=== PATIENT | female | born 1995 | race Caucasian/White ===

== ENCOUNTER 2016-07-12 21:55 | Emergency (ER) | payer OTHER ==
[2016-07-12] MEDS ORDERED: ONDANSETRON 4 MG ORAL DISINTEGRATING TAB (S0181) As Ordered ONE (23:10)
[2016-07-12] MEDS ORDERED: PROMETHAZINE INJ 25 MG/ML VIAL (J2550) As Ordered ONE (23:46)
--- NOTE | 2016-07-13 00:22 | EDDOCDS ---
Physician Documentation [facility] Name: Sherin Zarate Age: 20 yrs Sex: Female : 1995 Arrival Date: 07/12/2016 Time: 21:55 Bed 14 Private MD: Liliana Tay Disposition: 07/13 00:05 Critical Care: Critical care not applicable. le Disposition: 07/13/16 00:00 Discharged to Home/Self Care. Impression: Nausea with vomiting, unspecified, Diarrhea, unspecified. - Condition is Stable. - Discharge Instructions: Food Choices to Help Relieve Diarrhea, Adult, Diarrhea, Food Poisoning, Nausea and Vomiting. - Prescriptions for ZOFRAN ODT 4 mg - dissolve 1 tablet by ORAL route 4 times per day As needed do not chew, do not swallow whole; 10 tablet. - Medication Reconciliation, Local Pharmacy Hours form. - Follow up: Liliana Tay; When: 2 - 3 days; Reason: Recheck today's complaints, Continuance of care. - Problem is new. - Symptoms have improved. - Notes: Use the zofran, as needed, for nausea Keep hydrated by sipping on fluids frequently throughout the day You diarrhea may actually be due to the Augmentin, you can try a Probiotic to counter act this common side effect Return to the ED for any further concerns Historical: - Allergies: no known allergies; - Home Meds: 1. Protonix 40 mg Oral TbEC 1 tab once daily 2. Augmentin 875-125 mg Oral tab every 12 hours - PMHx: Anxiety; Depression; GERD; Left knee pain; Migraine Headaches; - PSHx: ovarian cyst removed; - Social history: Smoking status: Patient states former smoker of tobacco. No barriers to communication noted, The patient speaks fluent Grenadian. - Family history: Not pertinent. - : The pt / caregiver states he / she is not on anticoagulants. Home medication list is obtained from the patient. - Exposure Risk Screening:: None identified. 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 4 in. (162.56 cm) (R); Pain 5/10; 07/13 00:20 BP 132 / 68; Pulse 70; Resp 18; Temp 97.8(O); Pulse Ox 99% on R/A; Pain 0/10; tm5 07/12 21:57 Body Mass Index 51.84 (136.98 kg, 162.56 cm) gr2 MDM: 07/12 23:07 Ondansetron ODT Oral Disintegrating Tablet 4 mg PO once ordered. le 23:07 Fluid Challenge ordered. le 23:41 Promethazine 25 mg IM once ordered. le 23:50 Financial registration complete. hs2 Administered Medications: 23:14 Drug: Ondansetron ODT 4 mg [ondansetron 4 mg disintegrating tablet (1 tabs)] Route: PO; tm5 23:49 Follow up: Response: Nausea is decreased; No Adverse Reaction tm5 23:49 Drug: Promethazine 25 mg [promethazine 25 mg/mL injection solution (1 mL)] Route: IM; tm5 Site: left deltoid; 07/13 00:21 Follow up: Response: Nausea is resolved; No Adverse Reaction tm5 Signatures: Estefanía Walton, SUPERVISOR OF RESEARCH SUPERVISOR OF RESEARCHPalak Salmeron RN RN rs3 Fiorella Lares, Reg Reg hs2 Yvonne Leon RN RN tm5 MTDD
--- NOTE | 2016-07-13 00:22 | EDDOCDS ---
Nurse's Notes [facility] Name: Sherin Zarate Age: 20 yrs Sex: Female : 1995 Arrival Date: 07/12/2016 Time: 21:55 Bed 14 Private MD: Liliana Tay Diagnosis: Nausea with vomiting, unspecified;Diarrhea, unspecified Presentation: 07/12 22:01 Presenting complaint: Patient states: vomiting/diarrhea after eating Armenian food rs3 tonight. Adult Sepsis Screening: The patient does not have new or worsening altered mentation. Patient's respiratory rate is less than 22. Systolic blood pressure is greater than 100. Patient has a qSOFA score of 0- Negative Sepsis Screen. Suicide/Homicide risk assessment- the patient denies having any suicidal and/or homicidal ideations and does not present with any other emotional, behavioral or mental health complaints. Status: Patient is not a ramp service man or dependent. Transition of care: patient was not received from another setting of care. 22:01 Acuity: SARAHI Level 4 rs3 22:01 Method Of Arrival: Walkin/Carried/Asstd rs3 Triage Assessment: 22:03 General: Appears in no apparent distress. Pain: Location: abdomen. Pt Declines HIV rs3 testing. 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 Protonix 40 mg Oral TbEC 1 tab once daily 2. Augmentin 875-125 mg Oral tab every 12 hours - PMHx: Anxiety; Depression; GERD; Left knee pain; Migraine Headaches; - PSHx: ovarian cyst removed; - Social history: Smoking status: Patient states former smoker of tobacco. No barriers to communication noted, The patient speaks fluent Polish. - Family history: Not pertinent. - : The pt / caregiver states he / she is not on anticoagulants. Home medication list is obtained from the patient. - Exposure Risk Screening:: None identified. Screenin:14 Screening information is obtained from the patient. Fall risk: No risks identified. tm5 Assistance ADL's: requires no assistance with activities of daily living. Abuse/DV Screen: The patient / caregiver reports he/she is: not in a situation that causes fear, pain or injury. Nutritional screening: No deficits noted. Advance Directives: There is no active DNR order. home support is adequate. Assessment: 23:14 General: Appears in no apparent distress, Behavior is appropriate for age, cooperative. tm5 Pain: Denies pain. Neurological: Level of Consciousness is awake, alert, obeys commands, Oriented to person, place, time. Respiratory: No deficits noted. GI: Abdomen is obese, Bowel sounds present X 4 quads. Abd is soft and non tender X 4 quads. Reports nausea, vomiting. : No deficits noted. Derm: Skin is pink, warm & dry. 23:16 General: pt was provided with Ice water per SUPERVISOR BLAST FURNACE's request for PO challenge . tm5 23:51 Reassessment: Patient appears in no apparent distress at this time. Patient states tm5 symptoms have not improved. pt states that her nausea is a little better but she did "burp" and had a little bit of vomit come back up. 07/13 00:20 Reassessment: Patient appears in no apparent distress at this time. Patient states tm5 feeling better. Patient states symptoms have improved. Vital Signs: 07/12 21:57 BP 134 / 75; Pulse 95; Resp 18 S; Temp 99.3(O); Pulse Ox 98% on R/A; Weight 136.98 kg gr2 (R); Height 5 ft. 4 in. (162.56 cm) (R); Pain 5/10; 07/13 00:20 BP 132 / 68; Pulse 70; Resp 18; Temp 97.8(O); Pulse Ox 99% on R/A; Pain 0/10; tm5 07/12 21:57 Body Mass Index 51.84 (136.98 kg, 162.56 cm) gr2 Vitals: 07/12 21:57 Log In Time: July 12, 2016 at 21:57. gr2 ED Course: 21:56 Patient visited by Steve Medina. gr2 21:56 Patient moved to Waiting gr2 21:57 Liliana Tay is Private Physician. gr2 21:58 Patient visited by Steve Medina. gr2 21:58 Patient moved to Pre RCE gr2 22:02 Triage Initiated rs3 23:07 [facility]ef[facility] le 23:07 Patient moved to 14 cz 23:12 Patient visited by Estefanía Walton FNP. le 23:14 ED physician to see patient. tm5 23:14 The patient / caregiver is instructed regarding the plan of care and ED course. tm5 23:51 Patient visited by Yvonne Leon RN. tm5 07/13 00:00 Liliana Tay is Referral Physician. le 00:19 Patient visited by Yvonne Leon RN. tm5 00:20 No IV's were initiated during this patient's visit. No procedures done that require tm5 assistance. Administered Medications: 07/12 23:14 Drug: Ondansetron ODT 4 mg [ondansetron 4 mg disintegrating tablet (1 tabs)] Route: PO; tm5 23:49 Follow up: Response: Nausea is decreased; No Adverse Reaction tm5 23:49 Drug: Promethazine 25 mg [promethazine 25 mg/mL injection solution (1 mL)] Route: IM; tm5 Site: left deltoid; 07/13 00:21 Follow up: Response: Nausea is resolved; No Adverse Reaction tm5 Order Results: There are currently no results for this order. Outcome: 00:00 Discharge ordered by Provider. le 00:20 Discharge Assessment: Patient awake, alert and oriented x 3. No cognitive and/or tm5 functional deficits noted. Patient verbalized understanding of disposition instructions. patient administered narcotics - no. The following High Risk Discharge criteria are identified: None. Discharged to home ambulatory, with significant other. Condition: good Condition: stable Condition: improved. Discharge instructions given to patient, Instructed on discharge instructions, follow up and referral plans. medication usage, Demonstrated understanding of instructions, medications, Pt was receptive of discharge instructions/ teaching. Prescriptions given X 1. No special radiology studies were completed. Property :Personal belongings accompany Pt. 00:21 Patient left the ED. tm5 Signatures: Madahv Smith RN RN Estefanía De La Cruz FNP FNP le Soosairaj, Rosemary, RN RN rs3 Steve Medina 2 Yvonne Leon,RN WOLF tm5 MTDD
--- NOTE | 2016-07-15 01:22 | EDDOCDS ---
Nurse's Notes [facility] Name: Sherin Zarate Age: 20 yrs Sex: Female : 1995 Arrival Date: 07/12/2016 Time: 21:55 Bed 14 Private MD: Liliana Tay Diagnosis: Nausea with vomiting, unspecified;Diarrhea, unspecified Presentation: 07/12 22:01 Presenting complaint: Patient states: vomiting/diarrhea after eating Korean food rs3 tonight. Adult Sepsis Screening: The patient does not have new or worsening altered mentation. Patient's respiratory rate is less than 22. Systolic blood pressure is greater than 100. Patient has a qSOFA score of 0- Negative Sepsis Screen. Suicide/Homicide risk assessment- the patient denies having any suicidal and/or homicidal ideations and does not present with any other emotional, behavioral or mental health complaints. Status: Patient is not a return to service inspector or dependent. Transition of care: patient was not received from another setting of care. 22:01 Acuity: SARAHI Level 4 rs3 22:01 Method Of Arrival: Walkin/Carried/Asstd rs3 Triage Assessment: 22:03 General: Appears in no apparent distress. Pain: Location: abdomen. Pt Declines HIV rs3 testing. PUBLIC HEALTH: 22:03 LMP N/A - Irregular menses rs3 Historical: - Allergies: no known allergies; - Home Meds: 1. Protonix 40 mg Oral TbEC 1 tab once daily 2. Augmentin 875-125 mg Oral tab every 12 hours - PMHx: Anxiety; Depression; GERD; Left knee pain; Migraine Headaches; - PSHx: ovarian cyst removed; - Social history: Smoking status: Patient states former smoker of tobacco. No barriers to communication noted, The patient speaks fluent Khmer. - Family history: Not pertinent. - : The pt / caregiver states he / she is not on anticoagulants. Home medication list is obtained from the patient. - Exposure Risk Screening:: None identified. Screenin:14 Screening information is obtained from the patient. Fall risk: No risks identified. tm5 Assistance ADL's: requires no assistance with activities of daily living. Abuse/DV Screen: The patient / caregiver reports he/she is: not in a situation that causes fear, pain or injury. Nutritional screening: No deficits noted. Advance Directives: There is no active DNR order. home support is adequate. Assessment: 23:14 General: Appears in no apparent distress, Behavior is appropriate for age, cooperative. tm5 Pain: Denies pain. Neurological: Level of Consciousness is awake, alert, obeys commands, Oriented to person, place, time. Respiratory: No deficits noted. GI: Abdomen is obese, Bowel sounds present X 4 quads. Abd is soft and non tender X 4 quads. Reports nausea, vomiting. : No deficits noted. Derm: Skin is pink, warm & dry. 23:16 General: pt was provided with Ice water per CEREAL CHEMIST's request for PO challenge . tm5 23:51 Reassessment: Patient appears in no apparent distress at this time. Patient states tm5 symptoms have not improved. pt states that her nausea is a little better but she did "burp" and had a little bit of vomit come back up. 07/13 00:20 Reassessment: Patient appears in no apparent distress at this time. Patient states tm5 feeling better. Patient states symptoms have improved. Vital Signs: 07/12 21:57 BP 134 / 75; Pulse 95; Resp 18 S; Temp 99.3(O); Pulse Ox 98% on R/A; Weight 136.98 kg gr2 (R); Height 5 ft. 4 in. (162.56 cm) (R); Pain 5/10; 07/13 00:20 BP 132 / 68; Pulse 70; Resp 18; Temp 97.8(O); Pulse Ox 99% on R/A; Pain 0/10; tm5 07/12 21:57 Body Mass Index 51.84 (136.98 kg, 162.56 cm) gr2 Vitals: 07/12 21:57 Log In Time: July 12, 2016 at 21:57. gr2 ED Course: 21:56 Patient visited by Steve Medina. gr2 21:56 Patient moved to Waiting gr2 21:57 Liliana Tay is Private Physician. gr2 21:58 Patient visited by Steve Medina. gr2 21:58 Patient moved to Pre RCE gr2 22:02 Triage Initiated rs3 23:07 Estef[facility] F[facility] le 23:07 Patient moved to 14 cz 23:12 Patient visited by Estefanía Walton FNP. le 23:14 ED physician to see patient. tm5 23:14 The patient / caregiver is instructed regarding the plan of care and ED course. tm5 23:51 Patient visited by Yvonne Leon RN. tm5 07/13 00:00 Liliana Tay is Referral Physician. le 00:19 Patient visited by Yvonne Leon RN. tm5 00:20 No IV's were initiated during this patient's visit. No procedures done that require tm5 assistance. 00:43 [facility] Payment Agreement was scanned into [employer] and attached to record. hs2 12:18 T-Sheet-- Draft Copy was scanned into [employer] and attached to record. gb Administered Medications: 07/12 23:14 Drug: Ondansetron ODT 4 mg [ondansetron 4 mg disintegrating tablet (1 tabs)] Route: PO; tm5 23:49 Follow up: Response: Nausea is decreased; No Adverse Reaction tm5 23:49 Drug: Promethazine 25 mg [promethazine 25 mg/mL injection solution (1 mL)] Route: IM; tm5 Site: left deltoid; 07/13 00:21 Follow up: Response: Nausea is resolved; No Adverse Reaction tm5 Order Results: There are currently no results for this order. Outcome: 00:00 Discharge ordered by Provider. le 00:20 Discharge Assessment: Patient awake, alert and oriented x 3. No cognitive and/or tm5 functional deficits noted. Patient verbalized understanding of disposition instructions. patient administered narcotics - no. The following High Risk Discharge criteria are identified: None. Discharged to home ambulatory, with significant other. Condition: good Condition: stable Condition: improved. Discharge instructions given to patient, Instructed on discharge instructions, follow up and referral plans. medication usage, Demonstrated understanding of instructions, medications, Pt was receptive of discharge instructions/ teaching. Prescriptions given X 1. No special radiology studies were completed. Property :Personal belongings accompany Pt. 00:21 Patient left the ED. tm5 Signatures: Madhav Smith RN RN cz Barnhardt, Gloria, Reg Reg gb Estefanía Walton FNP FNP le Soosairaj, Rosemary, RN RN rs3 Steve Medina 2 Fiorella Lares, Reg Reg hs2 Matice,Yvonne,RN RN tm5 Chart Complete MTDD
--- NOTE | 2016-07-15 01:22 | EDDOCDS ---
Physician Documentation [facility] Name: Sherin Zarate Age: 20 yrs Sex: Female : 1995 Arrival Date: 07/12/2016 Time: 21:55 Bed 14 Private MD: iLliana Tay Disposition: 07/13 00:05 Critical Care: Critical care not applicable. le Disposition: 07/13/16 00:00 Discharged to Home/Self Care. Impression: Nausea with vomiting, unspecified, Diarrhea, unspecified. - Condition is Stable. - Discharge Instructions: Food Choices to Help Relieve Diarrhea, Adult, Diarrhea, Food Poisoning, Nausea and Vomiting. - Prescriptions for ZOFRAN ODT 4 mg - dissolve 1 tablet by ORAL route 4 times per day As needed do not chew, do not swallow whole; 10 tablet. - Medication Reconciliation, Local Pharmacy Hours form. - Follow up: Liliana Tay; When: 2 - 3 days; Reason: Recheck today's complaints, Continuance of care. - Problem is new. - Symptoms have improved. - Notes: Use the zofran, as needed, for nausea Keep hydrated by sipping on fluids frequently throughout the day You diarrhea may actually be due to the Augmentin, you can try a Probiotic to counter act this common side effect Return to the ED for any further concerns Historical: - Allergies: no known allergies; - Home Meds: 1. Protonix 40 mg Oral TbEC 1 tab once daily 2. Augmentin 875-125 mg Oral tab every 12 hours - PMHx: Anxiety; Depression; GERD; Left knee pain; Migraine Headaches; - PSHx: ovarian cyst removed; - Social history: Smoking status: Patient states former smoker of tobacco. No barriers to communication noted, The patient speaks fluent Malawian. - Family history: Not pertinent. - : The pt / caregiver states he / she is not on anticoagulants. Home medication list is obtained from the patient. - Exposure Risk Screening:: None identified. 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 4 in. (162.56 cm) (R); Pain 5/10; 07/13 00:20 BP 132 / 68; Pulse 70; Resp 18; Temp 97.8(O); Pulse Ox 99% on R/A; Pain 0/10; tm5 07/12 21:57 Body Mass Index 51.84 (136.98 kg, 162.56 cm) gr2 MDM: 07/12 23:07 Ondansetron ODT Oral Disintegrating Tablet 4 mg PO once ordered. le 23:07 Fluid Challenge ordered. le 23:41 Promethazine 25 mg IM once ordered. le 23:50 Financial registration complete. hs2 07/13 00:43 [facility] Payment Agreement was scanned into [employer] and attached to record. hs2 12:18 T-Sheet-- Draft Copy was scanned into [employer] and attached to record. gb Administered Medications: 07/12 23:14 Drug: Ondansetron ODT 4 mg [ondansetron 4 mg disintegrating tablet (1 tabs)] Route: PO; tm5 23:49 Follow up: Response: Nausea is decreased; No Adverse Reaction tm5 23:49 Drug: Promethazine 25 mg [promethazine 25 mg/mL injection solution (1 mL)] Route: IM; tm5 Site: left deltoid; 07/13 00:21 Follow up: Response: Nausea is resolved; No Adverse Reaction tm5 Signatures: Carrie Gardner, Reg Reg gb Estefanía Walton, PSYCHIATRIC RN PSYCHIATRIC RN Palak Guevara RN RN rs3 Fiorella Lares, Reg Reg hs2 Yvonne Leon RN RN tm5 The chart was reviewed and I authenticate all verbal orders and agree with the evaluation and treatment provided.Attachments: 00:43 [facility] [place] Agreement hs2 12:18 T-Sheet-- Draft Copy gb Chart Complete MTDD
--- NOTE | 2016-07-15 01:22 | EDDOCDS ---
Physician Documentation [facility] Name: Sherin Zarate Age: 20 yrs Sex: Female : 1995 Arrival Date: 07/12/2016 Time: 21:55 Bed 14 Private MD: Liliana Tay Disposition: 07/13 00:05 Critical Care: Critical care not applicable. le Disposition: 07/13/16 00:00 Discharged to Home/Self Care. Impression: Nausea with vomiting, unspecified, Diarrhea, unspecified. - Condition is Stable. - Discharge Instructions: Food Choices to Help Relieve Diarrhea, Adult, Diarrhea, Food Poisoning, Nausea and Vomiting. - Prescriptions for ZOFRAN ODT 4 mg - dissolve 1 tablet by ORAL route 4 times per day As needed do not chew, do not swallow whole; 10 tablet. - Medication Reconciliation, Local Pharmacy Hours form. - Follow up: Liliana Tay; When: 2 - 3 days; Reason: Recheck today's complaints, Continuance of care. - Problem is new. - Symptoms have improved. - Notes: Use the zofran, as needed, for nausea Keep hydrated by sipping on fluids frequently throughout the day You diarrhea may actually be due to the Augmentin, you can try a Probiotic to counter act this common side effect Return to the ED for any further concerns Historical: - Allergies: no known allergies; - Home Meds: 1. Protonix 40 mg Oral TbEC 1 tab once daily 2. Augmentin 875-125 mg Oral tab every 12 hours - PMHx: Anxiety; Depression; GERD; Left knee pain; Migraine Headaches; - PSHx: ovarian cyst removed; - Social history: Smoking status: Patient states former smoker of tobacco. No barriers to communication noted, The patient speaks fluent Angolan. - Family history: Not pertinent. - : The pt / caregiver states he / she is not on anticoagulants. Home medication list is obtained from the patient. - Exposure Risk Screening:: None identified. 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 4 in. (162.56 cm) (R); Pain 5/10; 07/13 00:20 BP 132 / 68; Pulse 70; Resp 18; Temp 97.8(O); Pulse Ox 99% on R/A; Pain 0/10; tm5 07/12 21:57 Body Mass Index 51.84 (136.98 kg, 162.56 cm) gr2 MDM: 07/12 23:07 Ondansetron ODT Oral Disintegrating Tablet 4 mg PO once ordered. le 23:07 Fluid Challenge ordered. le 23:41 Promethazine 25 mg IM once ordered. le 23:50 Financial registration complete. hs2 07/13 00:43 [facility] Payment Agreement was scanned into [employer] and attached to record. hs2 12:18 T-Sheet-- Draft Copy was scanned into [employer] and attached to record. gb Administered Medications: 07/12 23:14 Drug: Ondansetron ODT 4 mg [ondansetron 4 mg disintegrating tablet (1 tabs)] Route: PO; tm5 23:49 Follow up: Response: Nausea is decreased; No Adverse Reaction tm5 23:49 Drug: Promethazine 25 mg [promethazine 25 mg/mL injection solution (1 mL)] Route: IM; tm5 Site: left deltoid; 07/13 00:21 Follow up: Response: Nausea is resolved; No Adverse Reaction tm5 Signatures: Carrie Gardner, Reg Reg gb Estefanía Walton, PATIENT OFFICE REP PATIENT OFFICE REP Palak Guevara RN RN rs3 Fiorella Lares, Reg Reg hs2 Yvonne Leon RN RN tm5 The chart was reviewed and I authenticate all verbal orders and agree with the evaluation and treatment provided.Attachments: 00:43 [facility] [place] Payment Agreement hs2 12:18 T-Sheet-- Draft Copy gb Chart Complete MTDD
== END 2016-07-13 00:21 | disposition home or self-care (01) ==
LOC: M ED 21:55
DX: R11.2 Nausea with vomiting, unspecified (principal); R19.7 Diarrhea, unspecified; F41.9 Anxiety disorder, unspecified; F32.9 Major depressive disorder, single episode, unspecified; K21.9 Gastro-esophageal reflux disease without esophagitis; M25.562 Pain in left knee; G43.909 Migraine, unspecified, not intractable, without status migrainosus; Z87.891 Personal history of nicotine dependence; Z79.899 Other long term (current) drug therapy

== ENCOUNTER → 2017-01-02 | Outpatient (CLI) | payer MEDICAID, OTHER ==
[2017-01-02 16:41] LABS: BASO % 0.5 % (0.0-1.0); EOS # 0.2 K/mm3 (0.0-0.50); EOS % 2.7 % (0.0-3.0); LARGE UNSTAINED CELL # 0.1 K/mm3 (0.0-0.4); LARGE UNSTAINED CELL % 1.1 % (0.0-4.0); LYMPH # 1.7 K/mm3 (1.5-6.5); LYMPH % 20.5 % (24.0-44.0); MEAN CORPUSCULAR HEMOGLOBIN 29.7 pg (27.0-33.0); MEAN CORPUSCULAR HGB CONC 33.7 g/dl (32.0-36.5); MEAN CORPUSCULAR VOLUME 88.1 fl (80.0-96.0); MONO # 0.4 K/mm3 (0.0-0.8); MONO % 5.4 % (0.0-5.0); NEUTROPHILS # 5.5 K/mm3 (1.8-7.7); NEUTROPHILS % 69.7 % (36.0-66.0); PLATELET COUNT, AUTOMATED 264 k/mm3 (150-450); RED CELL DISTRIBUTION WIDTH 13.3 % (11.5-14.5); WHITE BLOOD COUNT 7.9 K/mm3 (4.0-10.0)
[2017-01-02 16:56] LABS: ALBUMIN 3.4 GM/DL (3.2-5.2); ALBUMIN/GLOBULIN RATIO 1.06 (1.00-1.93); ALKALINE PHOSPHATASE 59 U/L (45-117); ALT/SGPT 24 U/L (12-78); ANION GAP 6 MEQ/L (8-16); AST/SGOT 11 U/L (15-37); BILIRUBIN,TOTAL 0.6 MG/DL (0.2-1.0); BLOOD UREA NITROGEN 11 MG/DL (7-18); CALCIUM LEVEL 8.8 MG/DL (8.5-10.1); CARBON DIOXIDE LEVEL 25 MEQ/L (21-32); CHLORIDE LEVEL 105 MEQ/L (98-107); CREATININE FOR GFR 0.69 MG/DL (0.55-1.02); GLUCOSE, FASTING 88 MG/DL (70-105); POTASSIUM SERUM 4.3 MEQ/L (3.5-5.1); SODIUM LEVEL 136 MEQ/L (136-145); TOTAL PROTEIN 6.6 GM/DL (6.4-8.2)
[2017-01-06 08:07] LABS: PROTEIN C ANTIGEN 97 % (60-150); PROTEIN S ANTIGEN FREE 101 % (57-157); PROTEIN S ANTIGEN TOTAL 92 % (60-150)
== END ==
LOC: M WUC 13:48
PROVIDERS: ATTEND Surgery
DX: E66.01 Morbid (severe) obesity due to excess calories (principal)

== ENCOUNTER → 2017-03-07 | Outpatient (CLI) | payer OTHER ==
[2017-03-07 14:01] LABS: BASO % 0.4 % (0.0-1.0); EOS # 0.2 K/mm3 (0.0-0.50); EOS % 2.8 % (0.0-3.0); LYMPH # 1.7 K/mm3 (1.5-6.5); LYMPH % 22.9 % (24.0-44.0); MEAN CORPUSCULAR HEMOGLOBIN 30.2 pg (27.0-33.0); MEAN CORPUSCULAR HGB CONC 34.3 g/dl (32.0-36.5); MONO # 0.4 K/mm3 (0.0-0.8); MONO % 4.9 % (0.0-5.0); NEUTROPHILS # 4.9 K/mm3 (1.8-7.7); NEUTROPHILS % 67.4 % (36.0-66.0); RED CELL DISTRIBUTION WIDTH 13.6 % (11.5-14.5); WHITE BLOOD COUNT 7.3 K/mm3 (4.0-10.0)
[2017-03-07 14:23] LABS: ALBUMIN 3.5 GM/DL (3.2-5.2); ALBUMIN/GLOBULIN RATIO 0.97 (1.00-1.93); ALKALINE PHOSPHATASE 64 U/L (45-117); ALT/SGPT 26 U/L (12-78); ANION GAP 6 MEQ/L (8-16); AST/SGOT 13 U/L (15-37); BILIRUBIN,TOTAL 0.6 MG/DL (0.2-1.0); BLOOD UREA NITROGEN 15 MG/DL (7-18); CARBON DIOXIDE LEVEL 28 MEQ/L (21-32); CHLORIDE LEVEL 107 MEQ/L (98-107); CREATININE FOR GFR 0.89 MG/DL (0.55-1.02); GLUCOSE, FASTING 104 MG/DL (70-105); POTASSIUM SERUM 4.2 MEQ/L (3.5-5.1); SODIUM LEVEL 141 MEQ/L (136-145); TOTAL PROTEIN 7.1 GM/DL (6.4-8.2)
== END ==
LOC: M WUC 10:39
PROVIDERS: ATTEND Nurse Practitioner Family
DX: G90.09 Other idiopathic peripheral autonomic neuropathy (principal)

== ENCOUNTER → 2017-05-15 | Outpatient (CLI) | payer OTHER ==
[2017-05-15 09:18] LABS: TOTAL PROTEIN 6.5 GM/DL (6.4-8.2)
[2017-05-15 09:22] LABS: FOLATE 6.9 NG/ML; VITAMIN B12 LEVEL 285 PG/ML
[2017-05-17 11:10] LABS: ALBUMIN % 55.4 % (55.8-66.1); GAMMA GLOBULIN % 17.1 % (11.1-18.8)
== END ==
LOC: M LAB 07:50
PROVIDERS: ATTEND Psychiatry & Neurology Neurology
DX: R20.9 Unspecified disturbances of skin sensation (principal); Z13.29 Encounter for screening for other suspected endocrine disorder

== ENCOUNTER → 2017-06-01 | Outpatient (CLI) | payer OTHER ==
--- NOTE | 2017-06-01 15:58 | REP ---
CHEST, TWO VIEWS: Comparison: 07/24/2015. There is no evidence of acute infiltrate. No pleural effusion is seen. The heart is normal in size. The mediastinal silhouette is unremarkable. The visualized osseous structures are intact. IMPRESSION: No acute pulmonary disease. Signed by Kris Massey MD 06/01/2017 05:02 P
== END ==
LOC: M WUC 13:26
PROVIDERS: ATTEND Physician Assistant
DX: J20.9 Acute bronchitis, unspecified (principal)

== ENCOUNTER → 2017-06-21 | Outpatient (CLI) | payer OTHER ==
[2017-06-21 16:59] LABS: ALBUMIN 3.5 GM/DL (3.2-5.2); ALBUMIN/GLOBULIN RATIO 1.06 (1.00-1.93); ALKALINE PHOSPHATASE 61 U/L (45-117); ALT/SGPT 47 U/L (12-78); ANION GAP 6 MEQ/L (8-16); AST/SGOT 30 U/L (7-37); BILIRUBIN,TOTAL 0.7 MG/DL (0.2-1.0); BLOOD UREA NITROGEN 13 MG/DL (7-18); CALCIUM LEVEL 8.5 MG/DL (8.5-10.1); CARBON DIOXIDE LEVEL 26 MEQ/L (21-32); CHLORIDE LEVEL 110 MEQ/L (98-107); CREATININE FOR GFR 0.75 MG/DL (0.55-1.02); GLUCOSE, FASTING 102 MG/DL (70-105); POTASSIUM SERUM 4.4 MEQ/L (3.5-5.1); SODIUM LEVEL 142 MEQ/L (136-145); TOTAL PROTEIN 6.8 GM/DL (6.4-8.2)
[2017-06-21 17:09] LABS: ESTIMATED AVERAGE GLUCOSE 114 MG/DL (60-110); HEMOGLOBIN A1c 5.6 %
== END ==
LOC: M WUC 12:30
DX: R73.02 Impaired glucose tolerance (oral) (principal)
CPT/HCPCS: 80053

== ENCOUNTER → 2017-06-27 | Outpatient (CLI) | payer OTHER | LOC: M RAD 10:25 | DX: N92.6 Irregular menstruation, unspecified (principal); E65 Localized adiposity | CPT/HCPCS: 76856 ==

== ENCOUNTER 2017-08-21 12:59 | Emergency (ER) | payer OTHER ==
[2017-08-21] MEDS: GI COCKTAIL 50ML BTL(HYOSCYAMINE/MAALOX/LIDOCAINE VISCOUS)(1:3:1) PO (14:45)
[2017-08-21 14:47] LABS: BASO % 0.4 % (0.0-1.0); EOS # 0.2 10^3/uL (0.0-0.50); EOS % 2.4 % (0.0-3.0); HEMATOCRIT 41.8 % (36.0-47.0); HEMOGLOBIN 13.5 g/dl (12.0-16.0); IMMATURE GRANULOCYTE % 0.3 % (0-3.0); LYMPH # 1.9 10^3/uL (1.5-6.5); MEAN CORPUSCULAR HEMOGLOBIN 28.8 pg (27.0-33.0); MEAN CORPUSCULAR HGB CONC 32.3 g/dl (32.0-36.5); MEAN CORPUSCULAR VOLUME 89.3 fl (80.0-96.0); MONO # 0.7 10^3/uL (0.0-0.8); NEUTROPHILS % 63.9 % (36.0-66.0); PLATELET COUNT, AUTOMATED 247 10^3/uL (150-450); RED BLOOD COUNT 4.68 10^6/uL (4.00-5.40); RED CELL DISTRIBUTION WIDTH 13.9 % (11.5-14.5); WHITE BLOOD COUNT 7.8 10^3/uL (4.0-10.0)
[2017-08-21 14:52] LABS: CONTROL LINE HCG INT CTR LINE PRESENT; HCG, SERUM QUALITATIVE NEGATIVE (NEGATIVE)
[2017-08-21 14:57] LABS: INR 0.85; PROTHROMBIN TIME 11.7 SECONDS (12.4-14.5)
[2017-08-21 15:02] LABS: ALBUMIN 3.5 GM/DL (3.2-5.2); ALT/SGPT 25 U/L (12-78); ANION GAP 4 MEQ/L (8-16); AST/SGOT 14 U/L (7-37); BILIRUBIN,DIRECT < 0.1 MG/DL (0.0-0.2); BLOOD UREA NITROGEN 13 MG/DL (7-18); C REACTIVE PROTEIN QUANTITATIV 1.81 MG/DL (0.00-0.30); CALCIUM LEVEL 8.7 MG/DL (8.5-10.1); CARBON DIOXIDE LEVEL 28 MEQ/L (21-32); CHLORIDE LEVEL 109 MEQ/L (98-107); GLUCOSE, FASTING 97 MG/DL (70-100); LIPASE 102 U/L (73-393); POTASSIUM SERUM 4.5 MEQ/L (3.5-5.1); SODIUM LEVEL 141 MEQ/L (136-145); TROPONIN I < 0.02 NG/ML (< 0.10)
[2017-08-21 15:08] LABS: ALKALINE PHOSPHATASE 67 U/L (45-117); BILIRUBIN,TOTAL 0.3 MG/DL (0.2-1.0); CK-MB VALUE MASS 1.5 NG/ML (0.0-3.6); CPK CREATINE PHOSPHOKINASE 164 U/L (26-192); FREE T4 0.98 NG/DL (0.78-1.33); MB/CK RELATIVE INDEX 0.91 (< OR =4); NT-PRO BNP 28 PG/ML (<125)
[2017-08-21 15:10] LABS: D-DIMER QUANT < 270.0 ng/ml (<500)
[2017-08-21 18:13] LABS: CK-MB VALUE MASS 1.2 NG/ML (0.0-3.6); CPK CREATINE PHOSPHOKINASE 150 U/L (26-192); TROPONIN I < 0.02 NG/ML (< 0.10)
== END 2017-08-21 18:57 | disposition home or self-care (01) ==
LOC: M ED 12:59
DX: R07.9 Chest pain, unspecified (principal); J45.909 Unspecified asthma, uncomplicated; K21.9 Gastro-esophageal reflux disease without esophagitis; Z79.84 Long term (current) use of oral hypoglycemic drugs; Z79.899 Other long term (current) drug therapy
CPT/HCPCS: 71046

== ENCOUNTER → 2017-09-07 | Outpatient (CLI) | payer OTHER ==
[2017-09-07 12:58] LABS: BASO % 0.4 % (0.0-1.0); EOS # 0.2 10^3/uL (0.0-0.50); EOS % 2.3 % (0.0-3.0); HEMATOCRIT 41.5 % (36.0-47.0); HEMOGLOBIN 13.4 g/dl (12.0-16.0); IMMATURE GRANULOCYTE % 0.4 % (0-3.0); LYMPH # 1.7 10^3/uL (1.5-6.5); LYMPH % 22.3 % (24.0-44.0); MEAN CORPUSCULAR HEMOGLOBIN 28.5 pg (27.0-33.0); MEAN CORPUSCULAR HGB CONC 32.3 g/dl (32.0-36.5); MEAN CORPUSCULAR VOLUME 88.1 fl (80.0-96.0); MONO # 0.6 10^3/uL (0.0-0.8); MONO % 7.1 % (0.0-5.0); NEUTROPHILS # 5.3 10^3/uL (1.8-7.7); NEUTROPHILS % 67.5 % (36.0-66.0); PLATELET COUNT, AUTOMATED 269 10^3/uL (150-450); RED BLOOD COUNT 4.71 10^6/uL (4.00-5.40); WHITE BLOOD COUNT 7.8 10^3/uL (4.0-10.0)
[2017-09-07 13:14] LABS: ALBUMIN 3.4 GM/DL (3.2-5.2); ALBUMIN/GLOBULIN RATIO 0.97 (1.00-1.93); ALKALINE PHOSPHATASE 69 U/L (45-117); ALT/SGPT 27 U/L (12-78); ANION GAP 7 MEQ/L (8-16); AST/SGOT 11 U/L (7-37); BILIRUBIN,TOTAL 0.2 MG/DL (0.2-1.0); BLOOD UREA NITROGEN 19 MG/DL (7-18); CALCIUM LEVEL 8.6 MG/DL (8.5-10.1); CARBON DIOXIDE LEVEL 26 MEQ/L (21-32); CHLORIDE LEVEL 112 MEQ/L (98-107); CHOLESTEROL LEVEL 165 MG/DL (<200); CPK CREATINE PHOSPHOKINASE 155 U/L (26-192); CREATININE FOR GFR 0.82 MG/DL (0.55-1.30); GLUCOSE, FASTING 107 MG/DL (70-100); POTASSIUM SERUM 4.5 MEQ/L (3.5-5.1); SODIUM LEVEL 145 MEQ/L (136-145); TOTAL PROTEIN 6.9 GM/DL (6.4-8.2); TRIGLYCERIDES LEVEL 98 MG/DL (<150); TROPONIN I < 0.02 NG/ML (< 0.10)
[2017-09-07 13:21] LABS: CHOLESTEROL RISK RATIO 2.894 (<5); HDL CHOLESTEROL 57 MG/DL (>40); LDL CHOLESTEROL 88.4 MG/DL (<100); NON-HDL-C 108 MG/DL; NT-PRO BNP 35 PG/ML (<125)
[2017-09-07 13:35] LABS: D-DIMER QUANT < 270.0 ng/ml (<500)
[2017-09-07 14:03] LABS: ESTIMATED AVERAGE GLUCOSE 120 MG/DL (60-110); HEMOGLOBIN A1c 5.8 %
== END ==
LOC: M LAB 12:02
DX: I10 Essential (primary) hypertension (principal)
CPT/HCPCS: 71046

== ENCOUNTER → 2017-10-01 | Outpatient (REF) | payer OTHER ==
[2017-10-01 18:36] LABS: AMORPHOUS SEDIMENT SMALL (NEGATIVE); APPEARANCE, URINE TURBID (CLEAR); BACTERIA, URINE AUTO NEGATIVE (NEGATIVE); BILIRUBIN, URINE AUTO NEGATIVE (NEGATIVE); BLOOD, URINE BLOOD 1+ (NEGATIVE); CALCIUM OXALATE CRYSTALS SMALL; COLOR, URINE YELLOW (YELLOW); GLUCOSE, URINE (UA) AUTO NEGATIVE (NEGATIVE); KETONE, URINE AUTO NEGATIVE (NEGATIVE); LEUKOCYTE ESTERASE, URINE AUTO NEGATIVE (NEGATIVE); MUCUS, URINE MODERATE (NEGATIVE); NITRITE, URINE AUTO NEGATIVE (NEGATIVE); PROTEIN, URINE AUTO NEGATIVE (NEGATIVE); RBC, URINE AUTO 1 /HPF (0-3); SPECIFIC GRAVITY URINE AUTO 1.025 (1.002-1.035); SQUAMOUS EPITHELIAL CELL UR AU 1 /HPF (0-6); UROBILINOGEN, URINE AUTO 0.2 mg/dL (0.0-2.0); WBC, URINE AUTO 0 /HPF (0-3)
== END ==
LOC: M SMT 17:09
DX: R39.15 Urgency of urination (principal)

== ENCOUNTER → 2017-11-22 | Outpatient (CLI) | payer OTHER | LOC: M RAD 08:28 | DX: R39.15 Urgency of urination (principal) | CPT/HCPCS: 76857 ==

== ENCOUNTER → 2018-06-25 | Outpatient (CLI) | payer OTHER ==
[~2018-06-25] MED LIST: D32000CA PO; FLUO20CA8 PO; LISI10TA4; METF500T13 PO; PANT40TA3; TOPI50TA9; TRAZ-160 PO; VITA500C10 PO
[2018-06-25 19:44] LABS: BASO % 0.4 % (0.0-1.0); EOS # 0.3 10^3/uL (0.0-0.50); EOS % 4.1 % (0.0-3.0); HEMATOCRIT 41.1 % (36.0-47.0); HEMOGLOBIN 13.6 g/dl (12.0-15.5); LYMPH # 1.9 10^3/uL (1.5-6.5); LYMPH % 27.7 % (24.0-44.0); MEAN CORPUSCULAR HEMOGLOBIN 29.1 pg (27.0-33.0); MEAN CORPUSCULAR HGB CONC 33.1 g/dl (32.0-36.5); MONO # 0.6 10^3/uL (0.0-0.8); MONO % 8.5 % (0.0-5.0); PLATELET COUNT, AUTOMATED 255 10^3/uL (150-450); RED BLOOD COUNT 4.67 10^6/uL (4.00-5.40); WHITE BLOOD COUNT 6.8 10^3/uL (4.0-10.0)
[2018-06-25 19:54] LABS: HEMOGLOBIN A1c 5.9 %
[2018-06-25 20:03] LABS: ALBUMIN 3.3 GM/DL (3.2-5.2); ALT/SGPT 26 U/L (12-78); BILIRUBIN,TOTAL 0.4 MG/DL (0.2-1.0); BLOOD UREA NITROGEN 14 MG/DL (7-18); CALCIUM LEVEL 8.5 MG/DL (8.5-10.1); CARBON DIOXIDE LEVEL 29 MEQ/L (21-32); CHLORIDE LEVEL 106 MEQ/L (98-107); CREATININE FOR GFR 0.76 MG/DL (0.55-1.30); GLOMERULAR FILTRATION RATE > 60.0 (>60); GLUCOSE, FASTING 96 MG/DL (70-100); POTASSIUM SERUM 4.5 MEQ/L (3.5-5.1); SODIUM LEVEL 142 MEQ/L (136-145); TOTAL PROTEIN 6.3 GM/DL (6.4-8.2)
== END ==
LOC: M WUC 12:01
PROVIDERS: ATTEND Surgery
DX: Z01.812 Encounter for preprocedural laboratory examination (principal); E11.9 Type 2 diabetes mellitus without complications; K21.9 Gastro-esophageal reflux disease without esophagitis

== ENCOUNTER 2019-03-05 15:25 | Emergency (ER) | payer OTHER ==
[~2019-03-05] VITALS: Ht 157.5 cm; Wt 76.8 kg
[~2019-03-05 15:25] MED LIST changes: -MISO200T56; -OMEP-221; -SUCR1TAB56; -bariatric fusion PO
[2019-03-05] MEDS ORDERED: bariatric fusion PO (15:32)
[2019-03-05] MEDS ORDERED: MISO200T56 (15:32)
[2019-03-05] MEDS ORDERED: SUCR1TAB56 (15:32)
[2019-03-05] MEDS ORDERED: OMEP-221 (15:32)
[2019-03-05] MEDS ORDERED: KETOROLAC 30 MG/ML VIAL (J1885) IV ONE (16:45)
[2019-03-05] MEDS ORDERED: NS 1,000 ML IV ONE (16:45)
[2019-03-05 17:20] LABS: BASO % 0.5 % (0.0-1.0); EOS # 0.1 10^3/uL (0.0-0.5); EOS % 1.9 % (0.0-3.0); HEMATOCRIT 37.6 % (36.0-47.0); HEMOGLOBIN 12.5 g/dl (12.0-15.5); LYMPH # 1.6 10^3/uL (1.5-5.0); LYMPH % 25.1 % (24.0-44.0); MEAN CORPUSCULAR HEMOGLOBIN 30.9 pg (27.0-33.0); MEAN CORPUSCULAR HGB CONC 33.2 g/dl (32.0-36.5); MEAN CORPUSCULAR VOLUME 92.8 fl (80.0-96.0); MONO # 0.5 10^3/uL (0.0-0.8); MONO % 7.4 % (0.0-5.0); NEUTROPHILS # 4.2 10^3/uL (1.5-8.5); NEUTROPHILS % 64.9 % (36.0-66.0); PLATELET COUNT, AUTOMATED 197 10^3/uL (150-450); RED BLOOD COUNT 4.05 10^6/uL (4.00-5.40); WHITE BLOOD COUNT 6.5 10^3/uL (4.0-10.0)
[2019-03-05] MEDS: GASTROGRAFIN SOLUTION 30ML PO SCH ×2 (17:25→17:44)
[2019-03-05 17:35] LABS: INR 1.03; PROTHROMBIN TIME 13.2 SECONDS (11.8-14.0)
[2019-03-05 17:36] LABS: PARTIAL THROMBOPLASTIN TIME 27.5 SECONDS (25.0-38.4)
[2019-03-05 17:45] LABS: ALBUMIN 3.1 GM/DL (3.2-5.2); ALT/SGPT 13 U/L (12-78); BILIRUBIN,DIRECT 0.2 MG/DL (0.0-0.2); BILIRUBIN,TOTAL 0.4 MG/DL (0.2-1.0); BLOOD UREA NITROGEN 12 MG/DL (7-18); CALCIUM LEVEL 8.6 MG/DL (8.5-10.1); CARBON DIOXIDE LEVEL 28 MEQ/L (21-32); CHLORIDE LEVEL 110 MEQ/L (98-107); CK-MB VALUE MASS 1.1 NG/ML (<3.6); CPK CREATINE PHOSPHOKINASE 60 U/L (26-192); CREATININE FOR GFR 0.64 MG/DL (0.55-1.30); GLOMERULAR FILTRATION RATE > 60.0 (>60); GLUCOSE, FASTING 80 MG/DL (70-100); LIPASE 113 U/L (73-393); MB/CK RELATIVE INDEX 1.83 (< OR =4); POTASSIUM SERUM 3.6 MEQ/L (3.5-5.1); SODIUM LEVEL 145 MEQ/L (136-145); TOTAL PROTEIN 5.7 GM/DL (6.4-8.2); TROPONIN I < 0.02 NG/ML (< 0.10)
--- NOTE | 2019-03-05 17:45 | REP ---
HISTORY: Abdominal pain. COMPARISON: 09/07/2017 FINDINGS: The superior mediastinal structures are midline. The cardiac silhouette is unremarkable in size, shape and position. The diaphragmatic surfaces of the lungs are regular and the costophrenic angles are clear. The pulmonary pérez are clear. The imaged osseous structures are intact. IMPRESSION: There is no acute cardiopulmonary disease. Electronically Signed by Bautista Swan DO 03/05/2019 07:14 P
[2019-03-05] MEDS ORDERED: ISOVUE-370 76% 100ML VIAL (Q9967) As Ordered ONE (18:15)
--- NOTE | 2019-03-05 19:35 | REPVR ---
PROCEDURE INFORMATION: Exam: CT Abdomen and Pelvis With Contrast Exam date and time: 03/05/2019 6:47 PM Clinical history: 23 years old, female; Abdominal pain; Localized; Left lower quadrant (llq); Additional info: Llq, epigastric pain, h/o gastric bypass TECHNIQUE: Imaging protocol: Computed tomography of the abdomen and pelvis with intravenous contrast. Radiation optimization: All CT scans at this facility use at least one of these dose optimization techniques: automated exposure control; mA and/or kV adjustment per patient size (includes targeted exams where dose is matched to clinical indication); or iterative reconstruction. Contrast material: ISOVUE 370; Contrast volume: 100 ml; Contrast route: IV; COMPARISON: CT ABD PELVIS WITH CONTRAST 04/14/2016 9:55 PM FINDINGS: Lungs: No suspicious mass or airspace process in the visualized lung bases. Liver: Liver appears normal with no focal abnormality. Gallbladder and bile ducts: Gallbladder is present and shows no evidence of gallstone. Pancreas: Pancreas appears normal. No focal mass or peripancreatic inflammation. Spleen: Spleen appears homogeneous without focal mass. Adrenals: Adrenal glands are normal in appearance. Kidneys and ureters: Kidneys appear normal, with no stone, solid mass or hydronephrosis. Stomach and bowel: No evidence of small bowel obstruction. No evidence of acute diverticulitis. GE junction surgical changes without complication are seen. Appendix: Normal caliber appendix is identified, with no adjacent inflammation. Intraperitoneal space: No pneumoperitoneum. Trace free fluid is present in the pelvis. No abnormal pelvic mass. Vasculature: Main portal and splenic veins enhance normally. No aortic aneurysm. Lymph nodes: No enlarged lymph nodes. No abnormal pelvic sidewall lymph nodes. Bladder: Urinary bladder appears normal. Reproductive: Unremarkable as visualized. Bones/joints: Bony structures show no acute fracture or destructive process. IMPRESSION: 1. No acute or concerning focal abdominal or pelvic process. No explanation for acute left lower quadrant pain 2. Postsurgical changes of the GE junction without complication Electronically signed by: Chi Rivas On 03/05/2019 19:34:53 PM
[2019-03-05] MEDS ORDERED: GI COCKTAIL 50ML BTL(HYOSCYAMINE/MAALOX/LIDOCAINE VISCOUS)(1:3:1) PO ONE (20:15)
[2019-03-05 21:32] LABS: ACETAMINOPHEN LEVEL 3.2 UG/ML (10.0-30.0); ETHYL ALCOHOL (ETHANOL) < 0.003 % (0.000-0.010); SALICYLATE LEVEL < 1.7 MG/DL (5.0-30.0)
[2019-03-05 21:45] LABS: AMPHETAMINES LEVEL URINE NEGATIVE (NEGATIVE); BARBITURATES URINE NEGATIVE (NEGATIVE); BENZODIAZEPINES URINE NEGATIVE (NEGATIVE); CANNABINOIDS URINE POSITIVE (NEGATIVE); COCAINE METABOLITE URINE POSITIVE (NEGATIVE); METHADONE URINE NEGATIVE (NEGATIVE); OPIATES URINE NEGATIVE (NEGATIVE); PHENCYCLIDINE URINE NEGATIVE (NEGATIVE)
--- NOTE | 2019-03-06 00:30 | REPVR ---
PROCEDURE INFORMATION: Exam: CT Head Without Contrast Exam date and time: 03/05/2019 9:16 PM Clinical history: 23 years old, female; Psychosis or psychotic disorder; Unspecified; Additional info: Visual and auditory hallucinations TECHNIQUE: Imaging protocol: Computed tomography of the head without contrast. Radiation optimization: All CT scans at this facility use at least one of these dose optimization techniques: automated exposure control; mA and/or kV adjustment per patient size (includes targeted exams where dose is matched to clinical indication); or iterative reconstruction. COMPARISON: No relevant prior studies available. FINDINGS: Brain: No intracranial mass, mass effect or midline shift. No acute intracranial hemorrhage. No CT evidence of acute cortical infarct. Ventricles: Ventricles, cisterns, and sulci are normal in size for age. Bones/joints: No calvarial fracture or destructive process. Sinuses: Imaged paranasal sinuses are clear. Mastoid air cells: Mastoid air cells are normally aerated. Orbits: Imaged orbits are unremarkable. Soft tissues: No focal extracranial soft tissue swelling. IMPRESSION: No acute or concerning focal intracranial abnormality. Electronically signed by: Chi Rivas On 03/06/2019 00:29:43 AM
[2019-03-06 01:13] VITALS: BP 135/68
[2019-03-06 01:34] LABS: HCG, SERUM QUALITATIVE NEGATIVE (NEGATIVE)
--- NOTE | 2019-03-06 21:31 | ECGEPIP ---
[facility] - ED Test Date: 2019-03-05 Pat Name: LAUREEN MONTEMAYOR Department: Room: - Gender: Female [employer] Faculty Member: TC : 1995 Requested By: ES Ochoa PA-C Order Number: [id number] Reading MD: Petrona Franco Measurements Intervals [place] Rate: 42 P: -9 [place]: 157 QRS: 12 QRSD: 94 T: 13 QT: 476 QTc: 398 Interpretive Statements SINUS BRADYCARDIA LOW VOLTAGE PRWP DECREASED RATE 09/07/17 Electronically Signed on 03-06-2019 21:30:53 EDT by Petrona Franco
== END 2019-03-06 01:57 | disposition home or self-care (01) ==
LOC: M ED 15:25
DX: F14.20 Cocaine dependence, uncomplicated (principal); R10.9 Unspecified abdominal pain; K21.9 Gastro-esophageal reflux disease without esophagitis; K27.9 Peptic ulcer, site unspecified, unspecified as acute or chronic, without hemorrhage or perforation; Z79.899 Other long term (current) drug therapy; Z98.84 Bariatric surgery status; Z87.891 Personal history of nicotine dependence
CPT/HCPCS: 70450; 71046; 74177; 80048; 80076; 80307; 81001; 82550; 82553; 83605; 83690; 84443; 84703; 85025; 85610; 85730; 87088; 87186; 93005; 96374; 99284; G0480; J1885; Q9963; Q9967

== ENCOUNTER → 2019-03-05 | Outpatient (REF) | payer OTHER ==
[~2019-03-05] MED LIST changes: +MISO200T56; +OMEP-221; +SUCR1TAB56; -TRAZ-160 PO; +TRAZ-252 PO; +bariatric fusion PO
[2019-03-05 19:52] LABS: CHLAMYDIA DNA AMPLIFICATION POSITIVE (NEGATIVE); GC DNA AMPLIFICATION NEGATIVE (NEGATIVE)
== END ==
LOC: M LAB REF 17:08
PROVIDERS: ATTEND Obstetrics & Gynecology
DX: Z11.3 Encounter for screening for infections with a predominantly sexual mode of transmission (principal)

== ENCOUNTER → 2019-03-12 | Outpatient (CLI) | payer OTHER ==
[~2019-03-12] MED LIST changes: +MISO200T56; +OMEP-221; +SUCR1TAB56; +bariatric fusion PO
--- NOTE | 2019-03-12 08:16 | REP ---
Abdominal right upper quadrant ultrasound: Comparison is the abdomen/pelvis CT dated 03/05/2019. The studies performed for epigastric pain, history of gastric bypass 8 months ago. There are multiple small mobile gallbladder calculi layering along the dependent gallbladder wall . Additionally, there is an a polyp versus adherent calculus along the nondependent gallbladder wall measuring up to 2.9 mm in diameter. There is no intrahepatic or extrahepatic biliary duct dilatation. The common biliary duct measures 6.3 mm in diameter. The hepatic parenchyma is homogeneous. The liver is normal size measuring up to 16 centimeters cranial caudad in the midclavicular line. The visualized areas of the pancreas are unremarkable. The right kidney is normal size measuring 11.1 x 5.5 x 4.0 cm. There is no right renal calculus or hydronephrosis. There is no solid or cystic mass. There is no right upper quadrant ascites. Impression: Cholelithiasis. Small adherent calculus versus polyp along the bladder nondependent wall. Otherwise, negative abdominal right upper quadrant ultrasound. Electronically Signed by Kris Soto MD 03/12/2019 08:08 A
== END ==
LOC: M RAD 07:03
PROVIDERS: ATTEND Physician Assistant
DX: R10.13 Epigastric pain (principal); K80.20 Calculus of gallbladder without cholecystitis without obstruction

== ENCOUNTER → 2019-03-12 | Outpatient (CLI) | payer OTHER ==
--- NOTE | 2019-03-12 16:58 | REP ---
Pelvic ultrasound including transabdominal, endovaginal and Doppler ultrasound assessment for pelvic pain. The patient reportedly had a left cyst removal and 2012. The patient complains of left lower quadrant pain. The bladder is suboptimally distended. The uterus is anteverted and anteflexed. The uterus is normal size measuring 6.7 x 2.9 x 4.3 cm. The endometrium is not thickened measuring up to 6.1 mm. Right ovary: The right ovary is enlarged measuring 5.8 x 2.2 x 2.8 cm. On the prior study the right ovary measured 3.7 x 3.3 x 3.2 cm. However, on the study today there is no dominant mass or cyst in the right ovary. There is right ovarian vascular flow with the Doppler resistive index in the intraparenchymal arteries measuring 0.61 Left ovary: The left ovary measures 3.1 x 1.1 x 1.6 cm and is normal size. There is no dominant mass or cyst. There is vascular flow with the Doppler resistive index in the parenchymal arteries measuring 0.64. There is no free fluid in the pelvis. Impression: Essentially negative pelvic ultrasound except that the right ovary has increased size and now appears diffusely enlarged as a change from the prior study. However, there is no dominant mass or cyst in the right ovary by ultrasound. Electronically Signed by Kris Soto MD 03/12/2019 04:49 P
== END ==
LOC: M RAD 07:40 → EEVIPCON 07:40
PROVIDERS: ATTEND Obstetrics & Gynecology
DX: R10.2 Pelvic and perineal pain (principal); N85.4 Malposition of uterus; N83.8 Other noninflammatory disorders of ovary, fallopian tube and broad ligament

== ENCOUNTER → 2019-03-13 | Outpatient (CLI) | payer OTHER ==
[~2019-03-13] MED LIST changes: +FLUO20CA20 PO; -FLUO20CA8 PO
[2019-03-14 22:59] LABS: HEPATITIS A ANTIBODY IGM NEGATIVE (NEGATIVE); HEPATITIS B CORE ANTIBODY IGM NEGATIVE (NEGATIVE); HEPATITIS C VIRUS ABY INDEX 0.2 INDEX (<0.8); HIV 1&2 SCREEN CENTAUR NEGATIVE (NEGATIVE)
[2019-03-17 10:37] LABS: HEPATITIS B SURFACE ANTIGEN NEGATIVE (NEGATIVE)
== END ==
LOC: M LAB 08:27
PROVIDERS: ATTEND Obstetrics & Gynecology
DX: N92.6 Irregular menstruation, unspecified (principal); Z11.3 Encounter for screening for infections with a predominantly sexual mode of transmission

== ENCOUNTER → 2019-03-28 | Outpatient (REF) | payer OTHER ==
[~2019-03-28] MED LIST changes: -FLUO20CA20 PO; +FLUO20CA8 PO
== END ==
LOC: M LAB REF 16:30
PROVIDERS: ATTEND Physician Assistant
DX: B00.9 Herpesviral infection, unspecified (principal)